=== PATIENT | female | born 1980 | race Two or more races ===

== ENCOUNTER 2024-02-22 10:18 | Observation (INO) | payer MEDICAID | END 2024-02-22 11:50 | disposition home or self-care (01) | LOC: UNDOADMOB 10:18 → LDRP 10:18 → EDBD 10:18 → LDRP 10:37 → UNDODISOB 11:50 | PROVIDERS: ADMIT Obstetrics & Gynecology; ATTEND Obstetrics & Gynecology | DX: O09.523 Supervision of elderly multigravida, third trimester (principal); O24.419 Gestational diabetes mellitus in pregnancy, unspecified control; Z3A.31 31 weeks gestation of pregnancy; Z79.899 Other long term (current) drug therapy | CPT/HCPCS: 59025; 76818; 81002; 82948; 94760; G0378 ==

== ENCOUNTER 2024-02-25 11:35 | Observation (INO) | payer MEDICAID ==
[2024-02-29] MEDS ORDERED: PREN1TAB71 OR (09:17)
[2024-02-29 11:16] LABS: Urine Bacteria FEW /hpf (None Seen); Urine Blood Negative /uL (Negative); Urine Clarity Turbid (Clear); Urine Color Light-Yellow (Yellow); Urine Mucus FEW (None Seen); Urine Protein, UAD TRACE (Negative); Urine Specific Gravity 1.017 (1.001-1.035); Urine Urobilinogen Normal (Negative); Urine WBC 204 /hpf (0 - 5)
[2024-02-29] MEDS ORDERED: NITR-87 PO (12:06)
== END 2024-02-29 11:43 | disposition home or self-care (01) ==
LOC: UNDOADMOB 11:35 → LDRP 11:35 → UNDOADMOB 02-29 09:05 → LDRP 02-29 09:16 → UNDODISOB 02-29 11:43
PROVIDERS: ADMIT Obstetrics & Gynecology; ATTEND Obstetrics & Gynecology
DX: O24.415 Gestational diabetes mellitus in pregnancy, controlled by oral hypoglycemic drugs (principal); O24.414 Gestational diabetes mellitus in pregnancy, insulin controlled; O26.893 Other specified pregnancy related conditions, third trimester; R82.71 Bacteriuria; Z3A.32 32 weeks gestation of pregnancy; Z79.84 Long term (current) use of oral hypoglycemic drugs; Z79.4 Long term (current) use of insulin
CPT/HCPCS: 76818; 81001; 82962; 87086; G0378; 59025; 81002; 82948; 94760

== ENCOUNTER 2024-02-25 11:35 | Observation (INO) | payer MEDICAID | END 2024-02-25 14:09 | disposition home or self-care (01) | LOC: LDRP 11:35 | PROVIDERS: ADMIT Obstetrics & Gynecology; ATTEND Obstetrics & Gynecology | DX: O24.419 Gestational diabetes mellitus in pregnancy, unspecified control (principal); O26.873 Cervical shortening, third trimester; O09.523 Supervision of elderly multigravida, third trimester; Z3A.32 32 weeks gestation of pregnancy | CPT/HCPCS: 59025; 76817; 76818; 81002; 82948; 82962; 94760; G0378 ==

== ENCOUNTER 2024-03-03 10:47 | Observation (INO) | payer MEDICAID ==
[~2024-03-03 10:47] MED LIST: NITR-87 PO; PREN1TAB71 OR
== END 2024-03-03 13:30 | disposition home or self-care (01) ==
LOC: UNDOADMOB 10:47 → LDRP 10:47
PROVIDERS: ADMIT Obstetrics & Gynecology; ATTEND Obstetrics & Gynecology
DX: O24.419 Gestational diabetes mellitus in pregnancy, unspecified control (principal); O40.3XX0 Polyhydramnios, third trimester, not applicable or unspecified; Z3A.32 32 weeks gestation of pregnancy
CPT/HCPCS: 59025; 76818; 81002; 82948; 82962; 94760; G0378

== ENCOUNTER 2024-03-07 12:31 | Observation (INO) | payer MEDICAID | END 2024-03-07 14:45 | disposition home or self-care (01) | LOC: LDRP 12:31 | PROVIDERS: ADMIT Obstetrics & Gynecology; ATTEND Obstetrics & Gynecology | DX: O24.419 Gestational diabetes mellitus in pregnancy, unspecified control (principal); Z3A.33 33 weeks gestation of pregnancy | CPT/HCPCS: 59025; 76818; 81002; 82948; 82962; 94760; G0378 ==

== ENCOUNTER 2024-03-10 08:06 | Observation (INO) | payer MEDICAID | END 2024-03-10 09:26 | disposition home or self-care (01) | LOC: LDRP 08:06 → UNDOADMOB 08:06 → LDRP 08:16 → UNDODISOB 09:26 | PROVIDERS: ADMIT Obstetrics & Gynecology; ATTEND Obstetrics & Gynecology | DX: O24.419 Gestational diabetes mellitus in pregnancy, unspecified control (principal); O26.873 Cervical shortening, third trimester; O09.523 Supervision of elderly multigravida, third trimester; Z3A.33 33 weeks gestation of pregnancy | CPT/HCPCS: 59025; 76817; 76818; 81002; 82948; 82962; 94760; G0378 ==

== ENCOUNTER 2024-03-14 08:16 | Observation (INO) | payer MEDICAID | END 2024-03-14 10:06 | disposition home or self-care (01) | LOC: LDRP 08:16 | PROVIDERS: ADMIT Obstetrics & Gynecology; ATTEND Obstetrics & Gynecology | DX: O24.419 Gestational diabetes mellitus in pregnancy, unspecified control (principal); Z3A.33 33 weeks gestation of pregnancy | CPT/HCPCS: 59025; 76818; 81002; 82948; 82962; 94760; G0378 ==

== ENCOUNTER 2024-03-17 09:02 | Observation (INO) | payer MEDICAID | END 2024-03-17 10:35 | disposition home or self-care (01) | LOC: LDRP 09:02 | PROVIDERS: ADMIT Obstetrics & Gynecology; ATTEND Obstetrics & Gynecology | DX: O24.419 Gestational diabetes mellitus in pregnancy, unspecified control (principal); Z3A.34 34 weeks gestation of pregnancy; Z79.899 Other long term (current) drug therapy | CPT/HCPCS: 59025; 76818; 81002; 82948; 82962; G0378 ==

== ENCOUNTER 2024-03-21 13:22 | Observation (INO) | payer MEDICAID ==
[~2024-03-21] VITALS: Ht 154.9 cm; Wt 80.7 kg
[2024-03-21] MEDS ORDERED: LEVEMIR SC (14:47)
== END 2024-03-21 13:30 | disposition home or self-care (01) ==
LOC: LDRP 13:22
PROVIDERS: ADMIT Obstetrics & Gynecology; ATTEND Obstetrics & Gynecology
DX: O24.419 Gestational diabetes mellitus in pregnancy, unspecified control (principal); Z3A.35 35 weeks gestation of pregnancy
CPT/HCPCS: 59025; 76818; 81002; 82948; 82962; 94760; G0378

== ENCOUNTER 2024-03-24 12:25 | Observation (INO) | payer MEDICAID ==
[~2024-03-24 12:25] MED LIST changes: +LEVEMIR SC
[2024-03-24] MEDS ORDERED: ASPI-543 PO (13:40)
== END 2024-03-24 13:56 | disposition home or self-care (01) ==
LOC: LDRP 12:25 → UNDOADMOB 12:25 → LDRP 12:45 → UNDODISOB 13:56
PROVIDERS: ADMIT Obstetrics & Gynecology; ATTEND Obstetrics & Gynecology
DX: O24.410 Gestational diabetes mellitus in pregnancy, diet controlled (principal); O09.523 Supervision of elderly multigravida, third trimester; Z3A.35 35 weeks gestation of pregnancy; Z79.4 Long term (current) use of insulin
CPT/HCPCS: 59025; 76818; 81002; 82948; 82962; 94760; G0378

== ENCOUNTER 2024-03-28 08:24 | Observation (INO) | payer MEDICAID ==
[~2024-03-28 08:24] MED LIST changes: -NITR-87 PO
== END 2024-03-28 09:35 | disposition home or self-care (01) ==
LOC: UNDOADMOB 08:24 → LDRP 08:24 → UNDODISOB 09:35
PROVIDERS: ADMIT Obstetrics & Gynecology; ATTEND Obstetrics & Gynecology
DX: O09.513 Supervision of elderly primigravida, third trimester (principal); O24.419 Gestational diabetes mellitus in pregnancy, unspecified control; Z3A.36 36 weeks gestation of pregnancy; Z79.899 Other long term (current) drug therapy
CPT/HCPCS: 59025; 76818; 81002; 82948; 82962; 94760; G0378

== ENCOUNTER 2024-03-31 08:55 | Observation (INO) | payer MEDICAID | END 2024-03-31 10:35 | disposition home or self-care (01) | LOC: LDRP 08:55 → UNDOADMOB 08:55 → LDRP 09:13 → UNDODISOB 10:35 | PROVIDERS: ADMIT Obstetrics & Gynecology; ATTEND Obstetrics & Gynecology | DX: O24.419 Gestational diabetes mellitus in pregnancy, unspecified control (principal); O09.513 Supervision of elderly primigravida, third trimester; Z3A.36 36 weeks gestation of pregnancy | CPT/HCPCS: 59025; 76818; 81002; 82948; 82962; 94760; G0378 ==

== ENCOUNTER 2024-04-04 09:10 | Observation (INO) | payer MEDICAID | END 2024-04-04 10:25 | disposition home or self-care (01) | LOC: LDRP 09:10 | PROVIDERS: ADMIT Obstetrics & Gynecology; ATTEND Obstetrics & Gynecology | DX: O09.523 Supervision of elderly multigravida, third trimester (principal); O24.419 Gestational diabetes mellitus in pregnancy, unspecified control; Z3A.35 35 weeks gestation of pregnancy | CPT/HCPCS: 59025; 76818; 81002; 82948; 82962; 94760; G0378 ==

== ENCOUNTER 2024-04-07 09:28 | Observation (INO) | payer MEDICAID | END 2024-04-07 10:58 | disposition home or self-care (01) | LOC: LDRP 09:28 | PROVIDERS: ADMIT Obstetrics & Gynecology; ATTEND Obstetrics & Gynecology | DX: O24.113 Pre-existing type 2 diabetes mellitus, in pregnancy, third trimester (principal); O62.9 Abnormality of forces of labor, unspecified; Z3A.37 37 weeks gestation of pregnancy | CPT/HCPCS: 59025; 76818; 81002; 82948; 82962; 94760; G0378 ==

== ENCOUNTER 2024-04-11 09:14 | Observation (INO) | payer MEDICAID | END 2024-04-11 11:41 | disposition home or self-care (01) | LOC: UNDOADMOB 09:14 → LDRP 09:14 → UNDODISOB 11:41 | PROVIDERS: ADMIT Obstetrics & Gynecology; ATTEND Obstetrics & Gynecology | DX: O24.419 Gestational diabetes mellitus in pregnancy, unspecified control (principal); Z3A.38 38 weeks gestation of pregnancy | CPT/HCPCS: 59025; 76818; 81002; 82948; 82962; 94760; G0378 ==

== ENCOUNTER 2024-04-14 19:31 | Observation (INO) | payer MEDICAID | END 2024-04-14 22:01 | disposition home or self-care (01) | LOC: LDRP 19:31 | PROVIDERS: ADMIT Obstetrics & Gynecology; ATTEND Obstetrics & Gynecology | DX: O24.410 Gestational diabetes mellitus in pregnancy, diet controlled (principal); Z3A.38 38 weeks gestation of pregnancy; Z79.4 Long term (current) use of insulin | CPT/HCPCS: 59025; 76818; 81002; 82962; 94760; G0378 ==

== ENCOUNTER 2024-04-16 20:13 | Inpatient (IN) | payer MEDICAID ==
[~2024-04-16] VITALS: Ht 154.9 cm; Wt 82.6 kg
[2024-04-16] MEDS ORDERED: BUTORPHANOL TARTRATE 2 MG/1 ML VIAL IV PRN ×2 (21:15)
[2024-04-16 22:10] LABS: Basophils # (auto) 0 10 ^3/uL (0-0.2); Basophils % (auto) 0.3 % (0.0-2.0); Eosinophils # (auto) 0 10 ^3/uL (0-0.8); Eosinophils % (auto) 0.3 % (0.0-7.0); Hematocrit 34.3 % (36.0-46.0); Hemoglobin 11.9 g/dL (12.2-16.2); Lymphocytes # (auto) 2.3 10 ^3/uL (0.4-5.4); Lymphocytes % (auto) 29.2 % (10.0-50.0); Mean Corpuscular Hemoglobin 31.1 pg (28.0-32.0); Mean Corpuscular Hgb Conc. 34.6 g/dL (32.0-36.0); Mean Corpuscular Volume 89.8 fL (80.0-100.0); Monocytes # (auto) 0.6 10 ^3/uL (0-1.3); Monocytes % (auto) 7.1 % (0.0-12.0); Neutrophils % (auto) 63.1 % (37.0-80.0); Nucleated Red Blood Cells % 0.1 %; Platelet Count (auto) 247 10^3/uL (140-450); Red Blood Cells 3.82 10^6/uL (4.0-5.20); Red Cell Distribution Width 13.6 % (11.8-14.3); White Blood Cell 7.9 10^3/uL (4.4-10.8)
[2024-04-16 22:24] LABS: Alkaline Phosphatase 330 U/L (46-116); Anion Gap 12 (5-15); Aspartate Aminotransferase 17 U/L (13-40); BUN/Creatinine Ratio 14.3 (10.0-20.0); Bilirubin, Total 0.8 mg/dL (0.2-1.0); Blood Urea Nitrogen 9 mg/dL (9-23); Calcium 9.9 mg/dL (8.7-10.4); Carbon Dioxide 19 mmol/L (20-30); Chloride 107 mmol/L (98-107); Glucose 88 mg/dL (74-106); Potassium 3.9 mmol/L (3.5-5.1); Sodium 138 mmol/L (136-145); Total Protein 6.6 g/dL (5.7-8.2)
[2024-04-16 22:45] LABS: INR 0.94 (0.9-1.15); Partial Thromboplastin Time 25.3 SEC (24.5-34.5)
[2024-04-16 22:48] LABS: Alanine Aminotransferase < 9 U/L (7-40)
[2024-04-16 22:50] LABS: Urine Bacteria None Seen /hpf (None Seen)
[2024-04-16 22:58] LABS: Urine Blood Negative /uL (Negative); Urine Clarity Clear (Clear); Urine Color Colorless (Yellow); Urine Protein, UAD Negative (Negative); Urine Specific Gravity 1.003 (1.001-1.035); Urine Urobilinogen Normal (Negative); Urine WBC <1 /hpf (0 - 5)
[2024-04-16] MEDS ORDERED: DEXTROSE (50%) 50ML SYRG IV PRN (23:00)
[2024-04-16 23:11] LABS: Amphetamine Screen, Urine Neg (NEGATIVE); Barbiturate Scree,Urine Neg (NEGATIVE); Benzodiazephine Screen, Urine Neg (NEGATIVE); Cocaine Screen, Urine Neg (NEGATIVE); Opiate Scree,Urine Neg (NEGATIVE); Phencyclidine Screen, Urine Neg (NEGATIVE)
[2024-04-16 23:12] LABS: Cannabinoid Screen, Urine Neg (NEGATIVE)
[2024-04-17] MEDS: miSOPROStol 50 MCG per PRE-CUT 1/2 TAB ONE (00:17)
[2024-04-17] MEDS: LACTATED RINGER'S 1,000 ML IV SCH (01:13)
[2024-04-17] MEDS: ACCU-CHEK COMFORT CURVE STRIP VI SCH (01:17)
[2024-04-17] MEDS: miSOPROStol 50 MCG per PRE-CUT 1/2 TAB PO PRN (05:11)
[2024-04-17] MEDS ORDERED: ACCU-CHEK COMFORT CURVE STRIP VI SCH (07:00)
[2024-04-17] MEDS ORDERED: TERBUTALINE SULFATE 1 MG/ML 1ML VIAL SC PRN (10:15)
[2024-04-17] MEDS: WITCH HAZEL-GLYCERIN PAD TOP PRN (10:18)
[2024-04-17] MEDS: DERMOPLAST 60ML BOTTLE TOP PRN (10:18)
[2024-04-17] MEDS: PHISODERM TOP SOLN 240ML BTL TOP PRN (10:18)
[2024-04-17] MEDS: LACT. RINGERS/OXYTOCIN 20UNITS 1,000 ML IV SCH (10:30)
[2024-04-17] MEDS: METHYLERGONOVINE MALEATE 0.2 MG/ML AMP IM ONE (16:44)
[2024-04-17] MEDS: LIDOCAINE 2%HCL (LOCAL ANESTH.) INJ 20ML MDV IJ PRN (16:44)
[2024-04-17] MEDS ORDERED: METHYLERGONOVINE MALEATE 0.2 MG/ML AMP IM ONE (16:45)
[2024-04-17] MEDS ORDERED: IBUPROFEN 600 MG TAB PO PRN (16:45)
[2024-04-17] MEDS ORDERED: ONDANSETRON ODT 4 MG TAB PO PRN (16:45)
[2024-04-17] MEDS: LACT. RINGERS/OXYTOCIN 20UNITS 500 ML IV ONE ×2 (16:47)
[2024-04-17] MEDS: ACETAMINOPHEN 325 MG TAB PO PRN (18:28)
[2024-04-17 19:00] VITALS: BP 118/56; PULSE 86; RESP 16; TEMP 98.6; O2SAT 98
[2024-04-17] MEDS: InsuLIN REG 1unit/0.01ml Soln (100units/ml) SC SCH (22:19)
[2024-04-17 23:03] VITALS: BP 115/58; PULSE 70; RESP 15; TEMP 98.5; O2SAT 100
[2024-04-18 03:01] VITALS: BP 117/59; PULSE 82; RESP 18; TEMP 98.3; O2SAT 98
[2024-04-18 06:29] LABS: Basophils # (auto) 0 10 ^3/uL (0-0.2); Basophils % (auto) 0.2 % (0.0-2.0); Eosinophils # (auto) 0 10 ^3/uL (0-0.8); Eosinophils % (auto) 0.2 % (0.0-7.0); Hematocrit 29.2 % (36.0-46.0); Lymphocytes # (auto) 3.3 10 ^3/uL (0.4-5.4); Lymphocytes % (auto) 24.2 % (10.0-50.0); Mean Corpuscular Hemoglobin 30.9 pg (28.0-32.0); Mean Corpuscular Hgb Conc. 34.3 g/dL (32.0-36.0); Mean Corpuscular Volume 90.2 fL (80.0-100.0); Monocytes % (auto) 7.1 % (0.0-12.0); Neutrophils # (auto) 9.4 10 ^3/uL (1.6-8.6); Neutrophils % (auto) 68.3 % (37.0-80.0); Nucleated Red Blood Cells % 0.1 %; Platelet Count (auto) 211 10^3/uL (140-450); Red Blood Cells 3.23 10^6/uL (4.0-5.20); Red Cell Distribution Width 13.5 % (11.8-14.3); White Blood Cell 13.8 10^3/uL (4.4-10.8)
[2024-04-18 07:00] VITALS: BP 122/60; PULSE 80; RESP 18; TEMP 97.9; O2SAT 97
[2024-04-18 07:06] LABS: RPR Non Reactive (Non Reactive)
[2024-04-18] MEDS ORDERED: PREN1TAB71 PO (08:43)
[2024-04-18] MEDS ORDERED: FER325T PO (08:43)
[2024-04-18] MEDS ORDERED: DOCU-94 PO (08:43)
[2024-04-18] MEDS ORDERED: IBU600T PO (08:43)
[2024-04-18] MEDS ORDERED: ASCO500T11 PO (08:43)
[2024-04-18 09:14] VITALS: TEMP 36.6
[2024-04-18 11:00] VITALS: BP 132/59; PULSE 90; RESP 18; TEMP 98; O2SAT 98
[2024-04-18 15:00] VITALS: BP 103/55; PULSE 80; RESP 18; TEMP 97.9; O2SAT 96
[2024-04-18] MEDS ORDERED: miSOPROStol 100 mcg TAB PO ONE (15:08)
== END 2024-04-18 17:58 | disposition home or self-care (01) | DRG 560 ==
LOC: LDRP 20:13
PROVIDERS: ADMIT Obstetrics & Gynecology; ATTEND Obstetrics & Gynecology
PROC: 10E0XZZ Delivery of Products of Conception, External Approach (ICD-10-PCS; principal; 2024-04-17)
PROC: 3E0DXGC Introduction of Other Therapeutic Substance into Mouth and Pharynx, External Approach (ICD-10-PCS; 2024-04-17)
PROC: 0HQ9XZZ Repair Perineum Skin, External Approach (ICD-10-PCS; 2024-04-17)
PROC: 10907ZC Drainage of Amniotic Fluid, Therapeutic from Products of Conception, Via Natural or Artificial Opening (ICD-10-PCS; 2024-04-17)
DX: O24.02 Pre-existing type 1 diabetes mellitus, in childbirth (principal); Z37.0 Single live birth; R71.0 Precipitous drop in hematocrit; O62.2 Other uterine inertia; O70.0 First degree perineal laceration during delivery; Z3A.39 39 weeks gestation of pregnancy; Z79.4 Long term (current) use of insulin
CPT/HCPCS: 36415; 59025; 59409; 80053; 80307; 81001; 81002; 82948; 82962; 85025; 85610; 85730; 86592; 86803; 86850; 86900; 86901; 94760; 94762; 96360; 96361; 96365; 96366; 96372; G0378; J1815; J2590

== ENCOUNTER 2024-08-31 07:21 | Day surgery (SDC) | payer MEDICAID ==
[2024-08-28 11:36] LABS: Basophils # (auto) 0.1 10 ^3/uL (0-0.2); Basophils % (auto) 1.1 % (0.0-2.0); Eosinophils # (auto) 0.1 10 ^3/uL (0-0.8); Hematocrit 41.4 % (36.0-46.0); Hemoglobin 13.8 g/dL (12.2-16.2); Lymphocytes # (auto) 3.2 10 ^3/uL (0.4-5.4); Lymphocytes % (auto) 42.1 % (10.0-50.0); Mean Corpuscular Hemoglobin 29.8 pg (28.0-32.0); Mean Corpuscular Hgb Conc. 33.5 g/dL (32.0-36.0); Monocytes # (auto) 0.4 10 ^3/uL (0-1.3); Monocytes % (auto) 5.7 % (0.0-12.0); Neutrophils # (auto) 3.8 10 ^3/uL (1.6-8.6); Neutrophils % (auto) 50.1 % (37.0-80.0); Platelet Count (auto) 290 10^3/uL (140-450); Red Blood Cells 4.65 10^6/uL (4.0-5.20); Red Cell Distribution Width 14.4 % (11.8-14.3); White Blood Cell 7.7 10^3/uL (4.4-10.8)
[2024-08-28 11:53] LABS: INR 0.96 (0.9-1.15); Partial Thromboplastin Time 26.4 SEC (24.5-34.5); Prothrombin Time 10.2 sec (9.3-11.8)
[2024-08-28 11:58] LABS: Urine Bacteria FEW /hpf (None Seen); Urine Blood Negative /uL (Negative); Urine Clarity Clear (Clear); Urine Color Light-Yellow (Yellow); Urine Mucus FEW (None Seen); Urine Protein, UAD Negative (Negative); Urine Specific Gravity 1.018 (1.001-1.035); Urine Squamous Epithelial Cell FEW /hpf (<5); Urine Urobilinogen Normal (Negative); Urine WBC 2 /HPF (0-5)
[2024-08-28 12:07] LABS: Alanine Aminotransferase 26 U/L (7-40); Alkaline Phosphatase 108 U/L (46-116); Anion Gap 8 (5-15); Aspartate Aminotransferase 19 U/L (13-40); BUN/Creatinine Ratio 14.9 (10.0-20.0); Bilirubin, Total 0.8 mg/dL (0.2-1.0); Blood Urea Nitrogen 11 mg/dL (9-23); Carbon Dioxide 28 mmol/L (20-31); Chloride 104 mmol/L (98-107); Potassium 4.3 mmol/L (3.5-5.1); Sodium 140 mmol/L (136-145)
[2024-08-28 12:16] LABS: Albumin 5.4 g/dL (3.2-4.8); Glucose 122 mg/dL (74-106); Total Protein 8.3 g/dL (5.7-8.2)
--- NOTE | 2024-08-28 12:47 | DVHHP ---
ADMIT DATE: 08/31/2024 PREOPERATIVE HISTORY AND PHYSICAL PROPOSED DATE OF PROCEDURE: 08/31/2024 CHIEF COMPLAINT: Desire for female sterilization. HISTORY OF PRESENT ILLNESS: This is a 43-year-old female 6, para 5, 1, patient has a history of 5 normal term vaginal deliveries. Her recent delivery was in April of 2024. She is prediabetic, not currently on medication. The patient has 5 children. She is currently . She has lactational amenorrhea. She has been using barrier contraception. She is requesting permanent voluntary sterilization, does not desire any future childbearing. 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 PAST SURGICAL HISTORY: Laparoscopic cholecystectomy. MEDICATIONS: Vitamin D. ALLERGIES: No known drug allergies. SOCIAL HISTORY: The patient is . She is a homemaker. She denies any tobacco, alcohol or illicit drug use. FAMILY HISTORY: Noncontributory. REVIEW OF SYSTEMS: 14-point review of systems is negative as otherwise stated in the HPI. PHYSICAL EXAMINATION: VITAL SIGNS: She is 62 inches tall, weight 171 pounds, BMI 31.3, blood pressure 120/84, temperature is 98.6. GENERAL: She is alert, pleasant, no acute distress. HEENT: Normal. CARDIOVASCULAR: Normal S1, S2 heart sounds. No murmurs or gallops. LUNGS: Pulmonary clear to auscultation bilaterally. ABDOMEN: Obese, soft, nontender, no masses. EXTREMITIES: Without cyanosis, deformity or edema. PELVIC: Deferred. ASSESSMENT: * Multiparity requesting voluntary female sterilization. * BMI of 31 (obesity). * Prediabetes. PLAN: The patient will be admitted for same day surgery. She has consented for: Pelvic exam under anesthesia, operative laparoscopic bilateral tubal ligation with bilateral salpingectomy. Possible laparotomy. The risks, benefits and alternatives to surgery have been discussed with the patient and informed consent has been obtained. Risks of surgery and anesthesia discussed including risks of pain, scar, bleeding, infection, injury to bowel, bladder, adjacent organs, possible need for blood transfusion, possible laparotomy. The patient understands that the procedure is permanent and not reversible. It is more than 99% effective. She understands that although rare, pregnancies may still occur after sterilization including risk of ectopic . All questions answered. Informed consent has been obtained. DO FLEX Lawson TID: [id number] RECEIPT: [id number] MTDD
[~2024-08-31] VITALS: Ht 154.9 cm; Wt 77.6 kg
[~2024-08-31 07:21] MED LIST changes: +CHOL500021 OR; -LEVEMIR SC; -PREN1TAB71 OR; +PREN1TAB71 PO; +ceFAZolin 2 GM/D5W100ml 100 ML IV ONE
[2024-08-31] MEDS ORDERED: ROCURONIUM 10MG/ML 10ML VIAL IV ONE (07:22)
[2024-08-31] MEDS ORDERED: HYDR-4902 PO (08:45)
[2024-08-31] MEDS ORDERED: fentaNYL CITRATE 100 MCG/2 ML VL ONE (08:57)
[2024-08-31] MEDS ORDERED: MEPERIDINE HCL (25 MG/ML) 1ML VIAL ONE (08:57)
[2024-08-31] MEDS ORDERED: MIDAZOLAM HCL 2MG/2ML 2ml VIAL (1mg/ml) ONE (08:58)
[2024-08-31] MEDS ORDERED: ONDANSETRON HCL 4 MG/2 ML VIAL ONE (09:09)
[2024-08-31] MEDS ORDERED: PROPOFOL 10 MG/ML 20 ML IV ONE (09:09)
[2024-08-31] MEDS ORDERED: KETOROLAC TROMETH 30 MG/ML 1ML VIAL ONE (09:24)
[2024-08-31] MEDS: LIDOCAINE W/ EPINEPHRINE 1% 20ML VIAL ONE (09:33)
[2024-08-31 09:55] VITALS: TEMP 98.2; O2SAT 100
[2024-08-31] MEDS ORDERED: ePHEDrine SULFATE 50 MG/ML AMP IV PRN (10:00)
[2024-08-31] MEDS ORDERED: HYDROmorphone HCL 2 MG/ML VL/or syr IV PRN (10:00)
[2024-08-31] MEDS ORDERED: ONDANSETRON HCL 4 MG/2 ML VIAL IV ONE (10:00)
[2024-08-31] MEDS ORDERED: MORPHINE SULFATE 4 MG/ML SYR/VIAL IV PRN (10:00)
[2024-08-31] MEDS ORDERED: ACCU-CHEK COMFORT CURVE STRIP VI ONE (10:00)
[2024-08-31] MEDS ORDERED: hydrALAZINE HCL 20 MG/ML VL IV PRN (10:00)
[2024-08-31] MEDS ORDERED: KETOROLAC TROMETH 30 MG/ML 1ML VIAL IV ONE (10:00)
[2024-08-31] MEDS ORDERED: MIDAZOLAM HCL 2MG/2ML 2ml VIAL (1mg/ml) IV PRN (10:00)
[2024-08-31 10:25] VITALS: BP 116/63; PULSE 78; RESP 17; O2SAT 98
--- NOTE | 2024-08-31 12:21 | DVHOP ---
DATE OF SURGERY: 08/31/2024 PREOPERATIVE DIAGNOSIS: Multiparity, requesting voluntary female sterilization. POSTOPERATIVE DIAGNOSIS: Multiparity, requesting voluntary female sterilization. PROCEDURE PERFORMED: Operative laparoscopic bilateral salpingectomy. SURGEON: Josue Gomez DO SPORTS CLERK: Brijesh Luu NP DESCRIPTION OF FINDINGS: A normal-sized uterus, normal bilateral ovaries, normal bilateral fallopian tubes. No intraabdominal lesions noted. TECHNICAL PROCEDURE: After informed consent was obtained, the patient was taken to the operating room where her general anesthesia was found to be adequate. She was placed in dorsal lithotomy position in Buddy stirrups. The vagina, perineum, and abdomen were thoroughly prepped and the patient sterilely draped in the usual fashion. A pelvic exam was then performed under anesthesia with the above noted findings. A transurethral Trejo was placed. A weighted speculum was placed into the patient's vagina. The anterior lip of the cervix was grasped with a single tooth tenaculum. The uterine cavity sounded to 9 cm. HUMI uterine manipulator was placed transcervically and the balloon inflated. All instrumentation was removed from the patient's vagina. Attention was then placed into the patient's abdomen where a 5 mm incision was made at the base of the umbilicus. A Veress needle was introduced in the usual fashion. Pneumoperitoneum was obtained. A 5 mm Optiview trocar was placed through the umbilical port. Intraperitoneal placement was confirmed directly with the laparoscope. Entry was completely atraumatic. Survey of the abdomen and pelvis revealed the above noted findings. Two additional ports were inserted to the left and right of midline. An 8 mm Optiview trocar was placed to the patient's left of midline. The insurance claims assistant elevated the left fallopian tube in a cranial direction. I used the LigaSure device to divide the mesosalpinx with bipolar energy. The mesosalpinx was dissected in a distal to proximal fashion. The fallopian tube was then amputated at its uterine connection. Fallopian tube was retrieved through the 8 mm port and the fallopian tubes submitted to pathology. The same procedure was similarly repeated on the contralateral fallopian tube in similar fashion. There was no bleeding from the mesosalpinx. The abdomen and pelvis were irrigated and inspected for bleeding at low pressure with no bleeding noted. Survey of the rest of the abdomen and pelvis revealed normal findings. At this point, the carbon dioxide gas was removed. The trocars were removed under direct visualization. The skin incisions were then closed using 3-0 Monocryl in subcuticular fashion and a thin layer of Dermabond was then placed over the incisions. The Trejo catheter and uterine manipulator were removed with no bleeding noted. The patient was taken out of lithotomy position. She was awakened and taken to recovery room in stable condition. INTRAOPERATIVE COMPLICATIONS: None. ESTIMATED BLOOD LOSS: Less than 15 mL POSTOPERATIVE CONDITION: Stable. SPECIMENS: Left and right fallopian tubes. COMPLICATIONS: None. DO MARISABEL Lawson/GAYLA TID: [id number] RECEIPT: [id number]
== END 2024-08-31 10:55 | disposition home or self-care (01) ==
LOC: SUR 07:21
PROVIDERS: ATTEND Obstetrics & Gynecology
DX: Z30.2 Encounter for sterilization (principal); E11.9 Type 2 diabetes mellitus without complications; E78.2 Mixed hyperlipidemia; Z64.1 Problems related to multiparity; E66.9 Obesity, unspecified; Z68.31 Body mass index [BMI] 31.0-31.9, adult; Z90.49 Acquired absence of other specified parts of digestive tract; Z79.899 Other long term (current) drug therapy
CPT/HCPCS: 36415; 58670; 80053; 81001; 81025; 84702; 85025; 85610; 85730; 86850; 86900; 86901; 88305; J1885; J2175; J2250; J2405; J2704; J3010